=== PATIENT | female | born 1985 | race Caucasian/White ===

== ENCOUNTER 2019-10-17 10:32 | Outpatient (CLI) | payer OTHER ==
[2019-10-17 12:01] VITALS: BP 105/61
== END 2019-10-17 12:52 | disposition home or self-care (01) ==
LOC: TRG 10:32
PROVIDERS: ATTEND Obstetrics & Gynecology
DX: O47.1 False labor at or after 37 completed weeks of gestation (principal); Z3A.39 39 weeks gestation of pregnancy
CPT/HCPCS: 59025

== ENCOUNTER 2019-10-25 00:35 | Inpatient (IN) | payer OTHER ==
[2019-10-25] MEDS ORDERED: ePHEDrine SULFATE 50 MG/1 ML INJ IV PRN ×2 (01:27→05:05)
[2019-10-25] MEDS ORDERED: LIDOCAINE (2%) 20 MG/1 ML VIAL 20 ML MDV INFILTRATI ONE (01:27)
[2019-10-25] MEDS ORDERED: BUTORPHANOL 2 MG/1 ML INJ IV PRN (01:27)
[2019-10-25] MEDS ORDERED: TERBUTALINE 1 MG/1 ML INJ SUB-Q PRN (01:27)
[2019-10-25] MEDS ORDERED: MINERAL OIL 30 ML ORAL LIQD PO PRN (01:27)
[2019-10-25] MEDS ORDERED: OXYTOCIN 20 UNIT/1000ML DRIP 20 UNITS/1,000 ML BAG IV SCH (02:00)
[2019-10-25] MEDS ORDERED: LACTATED RINGERS 1,000 ML IV SCH (02:00)
[2019-10-25 02:46] LABS: Hematocrit 35.4 % (30.3-42.9); Hemoglobin 12.2 gm/dl (10.1-14.3); Mean Corpuscular HGB Conc 35 % (30-34); Mean Corpuscular Volume 95 fl (79-97); Platelet Count 152 K/mm3 (140-440); Red Blood Count 3.73 M/mm3 (3.65-5.03); Red Cell Distribution Width 14.3 % (13.2-15.2)
[2019-10-25] MEDS ORDERED: ONDANSETRON 4 MG/2 ML INJ IV PRN (04:01)
[2019-10-25] MEDS ORDERED: OXYTOCIN DRIP 30,000 MILLIUNITS/500 ML BAG IV ONE (04:03)
--- NOTE | 2019-10-25 04:09 | History and Physical Report ---
History of Present Illness Date of examination: 10/25/19 Date of admission: 10/25/2019 Chief complaint: Labor Pains History of present illness: Early entry to Care at [facility], course complicated by weight loss, and a hx of HSV II, taking Valacyclovir Suppression Past History Past Medical History: no pertinent history Past Surgical History: no surgical history PRODUCTION ADMINISTRATIVE ASSISTANT History: herpes Family/Genetic History: none Social history: no significant social history, - Obstetrical History Expected Date of Delivery: 10/24/19 Actual Gestation: 40 Week(s) 1 Day(s) : 5 Para: 3 Hx # Term Pregnancies: 3 Spontaneous Abortions: 1 Number of Living Children: 3 #1 Gender: Male year: 2,[birth year] Birthweight: 3.175 kg Method of Delivery: Vaginal Gestational age at delivery: 40 Complications: none #2 Gender: Female year: 2,[birth year] Birthweight: 3.175 kg Method of Delivery: Vaginal Gestational age at delivery: 40 Complications: none #3 Gender: Male year: 2,[birth year] Birthweight: 3.714 kg Method of Delivery: Vaginal Gestational age at delivery: 38 Complications: other (GDM) Medications and Allergies Allergies Allergy/AdvReac Type Severity Reaction Status Date / Time No Known Allergies Allergy Unverified 01/04/18 12:33 Home Medications Medication Instructions Recorded Confirmed Last Taken Type Valacyclovir HCl [Valtrex] 500 mg PO BID 01/12/18 01/12/18 01/11/18 History Active Meds: Active Medications Butorphanol Tartrate (Stadol) 2 mg IV Q2H PRN PRN Reason: Pain , Severe (7-10) Ephedrine Sulfate (Ephedrine Sulfate) 10 mg IV Q2M PRN PRN Reason: Hypotension Lactated Ringer's (Lactated Ringers) 1,000 mls @ 125 mls/hr IV DIRECT FARZANA Oxytocin/Sodium Chloride (Pitocin/Ns 20 Unit/1000ml Drip) 20 units in 1,000 mls @ 125 mls/hr IV DIRECT FARZANA Mineral Oil (Mineral Oil) 30 ml PO QHS PRN PRN Reason: Constipation Terbutaline Sulfate (Brethine) 0.25 mg SUB-Q ONCE PRN PRN Reason: Hyperstimulation/Hypertonicity Review of Systems All systems: negative - Vital Signs Vital signs: Vital Signs Temp 98.4 F 10/25/19 00:45 Temp Pulse Resp BP Pulse Ox 97.9 F 65 14 110/59 10/25/19 01:33 10/25/19 01:33 10/25/19 01:33 10/25/19 01:33 - Physical Exam Breasts: Positive: normal Cardiovascular: Regular rate Lungs: Positive: Clear to auscultation, Normal air movement Abdomen: Positive: normal appearance, soft, normal bowel sounds Genitourinary (Female): Positive: normal external genitalia, normal perenium Vagina: Positive: normal moisture Uterus: Positive: enlarged Anus/Rectum: Positive: normal perianal skin Extremities: Positive: normal - Obstetrical FHR: category 1 Uterine Contraction Monitor Mode: External Cervical Dilatation: 7 (Moderate amount of clear fluid upon AROM at 0359) Cervical Effacement Percentage: 80 station: -1 Uterine Contraction Pattern: Irregular Uterine Tone Measurement Phase: Resting Uterine Contraction Intensity: Mild Results Result Diagrams: 10/25/19 02:15 Abnormal lab results 10/25/19 Range/Units 02:15 MCH 33 H (28-32) pg MCHC 35 H (30-34) % All other labs normal. Assessment and Plan A: IUP @ 40 1/7 Weeks Category I Tracing Active Labor GBS Negative P: Admit to L&D Per Routine Orders AROM Pitocin Augmentation
[2019-10-25] MEDS ORDERED: DEXMEDETOMIDINE 200 MCG/2 ML VIAL IV ONE (04:46)
[2019-10-25] MEDS ORDERED: OXYTOCIN DRIP 30 UNITS/500 ML BAG IV SCH (05:00)
[2019-10-25] MEDS ORDERED: NALOXONE 2 MG/2 ML INJ IV PRN (05:05)
--- NOTE | 2019-10-25 05:05 | Anesthesia Consultation ---
Anesthesia Consult and Med Hx Date of service: 10/25/19 - Airway Anesthetic Teeth Evaluation: Good ROM Head & Neck: Adequate Mental/Hyoid Distance: Adequate Mallampati Class: Class II Intubation Access Assessment: Probably Good - Pulmonary Exam CTA: Yes - Cardiac Exam Cardiac Exam: RRR - Pre-Operative Health Status ASA Pre-Surgery Classification: ASA2 Proposed Anesthetic Plan: Epidural - Pulmonary Hx Asthma: No COPD: No Hx Pneumonia: No - Cardiovascular System Hx Hypertension: No - Central Nervous System Hx Seizures: No Hx Psychiatric Problems: No - Endocrine Hx Renal Disease: No Hx End Stage Renal Disease: No Hx Hypothyroidism: No Hx Hyperthyroidism: No - Hematic Hx Anemia: No Hx Sickle Cell Disease: No - Other Systems Hx Alcohol Use: No
--- NOTE | 2019-10-25 05:07 | Progress Note ---
Labor Epidural - Labor Epidural Start Time: 04:40 Stop Time: 04:57 Performed by:: CRISTINE MOE Procedure: Patient is requesting epidural for labor pain. H&P, and labs reviewed. Procedure explained, questions answered, consent obtained. Patient in sitting position with blood pressure cuff and pulse ox on and working. Timeout performed immediately before start of procedure. Sterile betadine prep/drape. 3 mL 1% lidocaine skin wheal at L[3]-L[4]. 18-gauge Touhy epidural needle advanced to [id number] with saline at [7] cm. Epidural dexmedetomidine [30] mcg administered. Epidural catheter advanced to [12] cm, negative aspiration for blood and csf, negative test dose 3 ml 1.5% lidocaine with epinephrine. Sterile steri-strips and tegaderm applied, followed by tape reinforcement. Patient tolerated procedure well. Day SRNA
[2019-10-25] MEDS ORDERED: WITCH HAZEL/ GLYCERIN PAD TP PRN (05:38)
[2019-10-25] MEDS ORDERED: diphenhydrAMINE 25 MG CAP PO PRN (05:38)
[2019-10-25] MEDS ORDERED: LANOLIN/ZINC/DIMETHICONE (LANSINOH) 7 GM TP PRN (05:38)
--- NOTE | 2019-10-25 05:44 | Procedure Note ---
OB Delivery Note - Delivery Date of Delivery: 10/25/19 (0526) Surgeon: ARACLEIS BECK Estimated blood loss: 200cc - Vaginal Delivery presentation: vertex Delivery position: OA Intrapartum events: none Delivery induction: none Delivery augmentation: rupture of membranes, pitocin Delivery monitor: external FHT, external uterine Route of delivery: Delivery placenta: spontaneous Delivery cord: 3 umbilical vessels Episiotomy: none Delivery laceration: none Anesthesia: epidural Delivery comments: of a live 8'8 male infant over a intact perineum under epidural anesthesia with Apgars of 8 and 9 at 0526 on 10/25/2019. directly to maternal abd/chest, skin to skin contact. Spontaneous delivery of placenta complete and intact with [place] side presenting at 0530. Fundus is firm and midline located 4 below the U. Lochia is scant. Delayed cord clamping and cutting; Cord cut by the Father of the Baby. Cord blood collected; Placenta discarded. - Infant A at 1 minute: 8 at 5 minutes: 9 Infant Gender: Male (8'8)
[2019-10-25] MEDS ORDERED: fentaNYL-BUPIV 2 MCG/ML-0.125% 200 MCG/100 ML BAG EPIDURAL SCH (06:00)
[2019-10-25] MEDS: HYDROcodone/ACETAMINOPHEN 5-325 MG TAB PO PRN ×3 (09:28→22:52)
[2019-10-25 12:48] LABS: Hemoglobin 11.2 gm/dl (10.1-14.3)
[2019-10-25] MEDS: IBUPROFEN 600 MG TAB PO SCH ×2 (13:00→18:33)
[2019-10-26] MEDS: IBUPROFEN 600 MG TAB PO SCH ×2 (01:31→05:40)
[2019-10-26] MEDS ORDERED: DIPHtheria,PERTUSSIS(ACELL),TETANUS VACCINE/PF 0.5 ML VIAL IM ONE (06:00)
[2019-10-26] MEDS: HYDROcodone/ACETAMINOPHEN 5-325 MG TAB PO PRN (10:33)
--- NOTE | 2019-10-26 11:23 | Discharge Summary ---
Providers - Providers Date of Admission: 10/25/19 01:27 Date of discharge: 10/26/19 Attending physician: PHILLIP LUTHER Primary care physician: PHILLIP LUTHER Hospitalization Reason for admission: active labor Delivery: Episiotomy: none Laceration: none Other procedures: none complications: none Discharge diagnosis: IUP at term delivered baby: male Hospital course: See admission H & P; OB delivery summary and PP progress notes Condition at discharge: Good Disposition: DC-01 TO HOME OR SELFCARE - Discharge Diagnoses (1) Status post normal vaginal delivery Status: Acute Plan - Provider Discharge Summary Activity: routine, no sex for 6 weeks, no heavy lifting 4 weeks, no strenuous exercise Diet: routine Instructions: routine Additional instructions: [] Smoking cessation referral if applicable(refer to patient education folder for contact #) [] Refer to [facility] Booklet Call your doctor immediately for: * Fever > 100.5 * Heavy vaginal bleeding ( >1 pad per hour) * Severe persistent headache * Shortness of breath * Reddened, hot, painful area to leg or breast - Follow up plan Follow up: PHILLIP LUTHER MD [Primary Care Provider] - 6 Weeks Forms: [facility] Discharge Summary
[2019-10-26 15:03] VITALS: BP 116/74
== END 2019-10-26 15:10 | disposition home or self-care (01) | DRG 807 ==
LOC: TRG 00:35 → LD 01:27 → OB 09:12
PROVIDERS: ADMIT Obstetrics & Gynecology; ATTEND Obstetrics & Gynecology
PROC: 10E0XZZ Delivery of Products of Conception, External Approach (ICD-10-PCS; principal; 2019-10-25)
PROC: 3E0R3BZ Introduction of Anesthetic Agent into Spinal Canal, Percutaneous Approach (ICD-10-PCS; 2019-10-25)
PROC: 00HU33Z Insertion of Infusion Device into Spinal Canal, Percutaneous Approach (ICD-10-PCS; 2019-10-25)
PROC: 3E0234Z Introduction of Serum, Toxoid and Vaccine into Muscle, Percutaneous Approach (ICD-10-PCS; 2019-10-26)
DX: O80 Encounter for full-term uncomplicated delivery (principal); Z37.0 Single live birth; Z3A.40 40 weeks gestation of pregnancy; Z23 Encounter for immunization
CPT/HCPCS: 36415; 85014; 85018; 85027; 86592; 86850; 86900; 86901; 90715; G0378; A6250; J2590; J3490; J7120; U0003-CS